=== PATIENT | male | born 1970 | race Hispanic/Latino ===

== ENCOUNTER 2019-06-09 11:32 | Emergency (ER) | payer OTHER | END 2019-06-09 12:24 | disposition home or self-care (01) | LOC: ERS 11:32 | DX: H60.91 Unspecified otitis externa, right ear (principal); H65.91 Unspecified nonsuppurative otitis media, right ear; I10 Essential (primary) hypertension; E78.5 Hyperlipidemia, unspecified; E78.00 Pure hypercholesterolemia, unspecified; Z79.82 Long term (current) use of aspirin; Z79.899 Other long term (current) drug therapy | CPT/HCPCS: 99282 ==

== ENCOUNTER 2019-07-13 09:42 | Emergency (ER) | payer OTHER ==
[2019-07-13] MEDS ORDERED: Metoclopramide HCl 10 MG/2 ML VIAL ONE (10:29)
[2019-07-13] MEDS ORDERED: diphenhydrAMINE 50 MG/ML VIAL ONE (10:29)
--- NOTE | 2019-07-13 11:00 | CT ---
EXAM: Brain CTWithout contrast: HISTORY: Headache COMPARISON: None FINDINGS: Approximately 0.7 cm diameter soft tissue subcutaneous nodular density overlying the left lateral bon e, nonspecific. No focal mass or midline shift. No intra or extra-axial hemorrhage. Sinuses and mastoids are clear of acute process. IMPRESSION: No mass or bleed or other significant acute intracranial process.
== END 2019-07-13 12:45 | disposition home or self-care (01) ==
LOC: MERGE 09:42 → ERS 09:42
DX: G44.209 Tension-type headache, unspecified, not intractable (principal); I10 Essential (primary) hypertension; M10.9 Gout, unspecified; E78.5 Hyperlipidemia, unspecified; Z87.891 Personal history of nicotine dependence; Z79.899 Other long term (current) drug therapy; Z79.82 Long term (current) use of aspirin
CPT/HCPCS: 70450; 96365; 96366; 96375; J1200; J2765